=== PATIENT | male | born 1965 | race African-American/Black ===

== ENCOUNTER 2018-01-05 14:17 | Emergency (ER) | payer BC ==
[~2018-01-05] VITALS: Ht 180.3 cm; Wt 130.7 kg
[2018-01-05] MEDS ORDERED: FLEXERIL10 MG PO (14:59)
[2018-01-05] MEDS ORDERED: LIDODERM 5% P1 PATCH TD (14:59)
[2018-01-05 15:59] VITALS: BP 151/82
== END 2018-01-05 15:59 | disposition home or self-care (01) ==
LOC: EME 14:17
DX: M54.9 Dorsalgia, unspecified (principal); Z87.891 Personal history of nicotine dependence
CPT/HCPCS: 99281; 99283; J1100; J1885